=== PATIENT | male | born 1935 | race African-American/Black ===

== ENCOUNTER 2020-11-14 22:34 | Emergency (ER) | payer MEDICARE, BC ==
[2020-11-14 23:20] LABS: ALT (SGPT) 34 U/L (8-55); AST (SGOT) 52 U/L (5-34); Albumin 3.4 g/dL (3.4-4.8); Alkaline Phosphatase 181 U/L (40-110); Anion Gap 18 mmol/L (10-20); BUN (Urea Nitrogen) 15 mg/dL (8.4-25.7); Bilirubin, Total 0.5 mg/dL (0.2-1.2); Calc. Creatinine Clearance 0 mL/min (70-130); Calcium 9.6 mg/dL (7.8-10.44); Carbon Dioxide 25 mmol/L (23-31); Chloride 100 mmol/L (98-107); Globulin 3.2 g/dL (2.4-3.5); Glucose 116 mg/dL (83-110); Lipase 113 U/L (8-78); Potassium 3.3 mmol/L (3.5-5.1); Protein, Total 6.6 g/dL (5.8-8.1); Sodium 140 mmol/L (136-145)
[2020-11-14 23:32] LABS: #Eosinphils 0.7 10x3/uL (0.0-0.5); #Neutrophils 5.6 10x3/uL (1.5-8.4); %Basophils 0.5 % (0.0-2.0); %Eosinophils 8.3 % (0.0-6.0); %Lymphocytes 13.7 % (18.0-47.0); %Monocytes 12.1 % (0.0-10.0); %Neutrophils 65.1 % (40.0-75.0); Hemoglobin 10.5 g/dL (13.5-17.5); Mean Corpuscular HGB CONC 31.6 g/dL (32.0-36.0); Mean Corpuscular Hemoglobin 32.6 pg (27.0-33.0); Mean Corpuscular Volume 103.1 fl (81.2-95.1); Mean Platelet Volume 12.8 fl (7.4-10.4); Platelet Count 50 10x3/uL (150-450); RBC Distribution Width 15.2 % (11.5-14.5); Red Blood Cell (RBC) Count 3.22 10x6/uL (4.32-5.72); White Blood Cell (WBC) Count 8.6 10x3/uL (3.5-10.5)
[2020-11-14 23:33] LABS: Anisocytosis SLIGHT = 6-15 cells (100X) (0-5/hpf); Macrocytosis SLIGHT = 6-15 cells (100X) (0-5/hpf); Ovalocytes SLIGHT = 2-5 cells (100X) (0-1/hpf); Poikilocytosis SLIGHT = 6-15 cells (100X) (0-5/hpf)
[2020-11-14 23:34] LABS: Burr Cells SLIGHT = 2-5 cells (100X) (0-1/hpf)
[2020-11-14 23:35] LABS: Large Platelets SLIGHT; Platelet Morphology Comment Appears Decreased
[2020-11-15] MEDS ORDERED: Human Prothrombin Complx(PCC) 500 UNIT VIAL ONE ×2 (00:41→00:43)
[2020-11-15] MEDS ORDERED: niCARdipine 25 MG/10 ML VIAL ONE (01:07)
[2020-11-15 01:12] LABS: Base Excess (BEa) 2.5 mEq/L (-2.0 to +3.0); CO2 Tension 31.2 mmHg (35.0-45.0); Hemoglobin (Hb) 10.7 g/dL (14.0-18.0); O2 Tension (PaO2), arterial 220.5 mmHg (> 60.0); pH, Arterial 7.52 (7.35-7.45)
[2020-11-15 01:13] LABS: Calcium, Ionized (arterial) 1.13 mmol/L (1.12-1.30); Potassium - ABG Lab 3.4 mmol/L (3.70-5.30); Puncture Site RRA
[2020-11-15 01:39] LABS: PTT 26.4 sec (22.0-33.0); Prothrombin Time 11.5 sec (9.5-12.1)
== END 2020-11-15 01:41 | disposition short-term general hospital (02) ==
LOC: CSHERS 22:34
DX: I61.9 Nontraumatic intracerebral hemorrhage, unspecified (principal); N18.6 End stage renal disease; Z79.01 Long term (current) use of anticoagulants; Z79.899 Other long term (current) drug therapy
CPT/HCPCS: 31500 ×2; 36600; 70450; 71045; 80053; 82805; 83690; 83880; 85025; 85610; 85730; 93005; 94002; 94760; 96365; 96367; 99291; C9132; 36415